=== PATIENT | female | born 1995 | race Caucasian/White ===

== ENCOUNTER 2021-08-24 10:36 | Outpatient (RCR) | payer OTHER, SELFPAY | END 2021-11-18 23:59 | disposition home or self-care (01) | LOC: ANHLAB 10:36 | PROVIDERS: Referring Provider Obstetrics & Gynecology; Visit Provider Advanced Practice Midwife | DX: O20.0 Threatened abortion (principal); Z3A.00 Weeks of gestation of pregnancy not specified | CPT/HCPCS: 36415; 84702; 85461 ==

== ENCOUNTER 2021-09-03 01:46 | Day surgery (SDC) | payer OTHER, SELFPAY ==
--- NOTE | 2021-09-01 07:37 | SUR.PREOP ---
Report to the Outpatient Waiting Room, entrance under the green pavilion located off [facility], at time 1200 on date 09/03/21. OR Time: 1400. - You and your visitor will be asked a series of questions to screen for COVID 19 for your protection. - Only one visitor is allowed at this time. - The patient visitor is requested to leave or wait in car when not with patient. - A mask is required within the hospital. Patients may have clear liquids (water, carbonated beverages, clear teas, apple juice) until 3 hours prior to surgery with a maximum of 20 ounces. - NO CLEAR LIQUIDS AFTER 1100 - No food from midnight until time of surgery - Infants may have breast milk until 4 hours before surgery, infant formula 6 hours prior to surgery. - Children will be allowed to drink immediately following surgery. If applicable, please bring a bottle or sippy cup to assist with drinking. Juice, water, soda, and popsicles are readily available. For infants on formula, please bring formula the day of surgery. Pacifiers are allowed. Please no make-up, nail [place], hairspray, perfume, deodorant, or body powder the day of surgery. No jewelry (including any body piercings) or valuables the day of surgery, leave them at home. Please take a shower or bath the night before, or the morning of, surgery with an antibacterial soap. Wear comfortable, loose fitting clothing. Children are encouraged to wear pajamas. - Jewelry must be removed prior to entering the operating room. Rings and piercings that are not removed may be cut off. - The hospital will not accept responsibility for valuables. - Please leave all valuables, including medications, at home the day of surgery. If you are going home after surgery, a licensed star route mail driver must drive you home. - NO public transportation without another adult. - We recommend that an adult stay with you for 24 hours following discharge. - We also recommend that you do not drive, make important decision, drink alcoholic beverages, or take any drugs that were not prescribed by your health care provider for at least 24 hours after your discharge time. For Pediatric surgeries, we recommend two adults accompany the child home (only one inside the building at this time). Follow any additional instructions given to you from your surgeon. If you or anyone in your household have experienced Covid symptoms in the past week, please notify your surgeon or the nurse liaison at the phone number below for possible testing. Telephone instructions given to CAYDEN GARCIA and asked if any additional questions and then verbalized understanding. Patient advised to call surgeon office or pre surgery nurse liaison [phone] if any additional questions.
[2021-09-01 07:47] VITALS: BMI 30.1
[2021-09-03 12:19] VITALS: BP 105/66; PULSE 69; RESP 20; TEMP 36.1; O2SAT 100
[2021-09-03] MEDS: ACETAMINOPHEN 500 MG TABLET 1000 MG PO (12:24)
--- NOTE | 2021-09-03 13:21 | WPDANESEPPF ---
Anes - Initial Pre Proc Eval Procedure: Operation Date: 09/03/21 14:00 Proposed Procedures p Suction Dilation and Curettage - Meghan Rodriguez MD Date/Time: 09/03/21 13:21 Surgeon: Meghan Rodriguez MD Pre Op Diagnosis: Missed Ab Patient Data Age: 25 Gender: F Height: 1.6 m Weight: 77.2 kg Last Vital Signs Temp 97.0 F L 09/03/21 12:19 Pulse 69 09/03/21 12:19 Resp 20 09/03/21 12:19 BP 105/66 09/03/21 12:19 Pulse Ox 100 09/03/21 12:19 Allergies Allergy/AdvReac Type Severity Reaction Status Date / Time No Known Allergies Allergy Verified 09/03/21 12:20 Home Medications Medication Instructions Recorded Confirmed Type omeprazole 40 mg PO HS 09/01/21 09/03/21 History multivitamin [Daily Multivitamin] 1 tablet PO DAILY 09/03/21 09/03/21 History Patient hx anesthesia problems: none Family hx anesthesia problems: none Results Review: All pre-operative results and documents have been reviewed as part of the pre-operative evaluation. [facility] Social History Social History Smoking status: Never smoker Living arrangements: with family Spiritual care concerns: No Anes - Eval Final PreProcedure Day of Procedure 09/03/21 13:21 Patient weight: obese Heart: regular rate and rhythm Lungs: clear to auscultation Airway: Mallampati scale class II Neurological: alert and oriented Last oral intake: >/= 8 hours ASA classification: II Emergent: no Anesthetic plan: proceed Anesthesia type and monitoring: general GIVS and standard monitoring Results Review: All pre-operative results and documents have been reviewed as part of the pre-operative evaluation. Informed Consent: The patient's anesthetic plan and its attendant risks and benefits were discussed with the patient/family/POA. Questions were solicited and answers provided to the satisfaction of the patient/family/POA.
--- NOTE | 2021-09-03 13:51 | PM.IMHP ---
H&P: HPI History of Present Illness Date/Time: 09/03/21 13:51 Chief Complaint: missed ab Narrative: Kavita is a 25yo G1 at 10w by dates with missed ab. hcgs plateaued and no change in US in over a week. Rh pos. She has had brown bleeding but no red bleeding. Cramping is increasing last few days. Review of Systems Review of Systems: All systems reviewed & are unremarkable except as noted in HPI and below PMFSH Social History Social History Smoking status: Never smoker Living arrangements: with family Spiritual care concerns: No Meds Home Medications and Allergies Home Medications Medication Instructions Recorded Confirmed Type omeprazole 40 mg PO HS 09/01/21 09/03/21 History multivitamin [Daily Multivitamin] 1 tablet PO DAILY 09/03/21 09/03/21 History Allergies Allergy/AdvReac Type Severity Reaction Status Date / Time No Known Allergies Allergy Verified 09/03/21 12:20 Vital Signs Vital Signs - 24 hr 09/03/21 12:19 Temperature 97.0 F L Pulse Rate 69 Respiratory Rate 20 Blood Pressure 105/66 Pulse Oximetry 100 Exam Const: General: no acute distress Resp: Effort & Inspection: normal respiratory effort Auscultation: clear to auscultation bilaterally Cardio: Rate: regular rate Rhythm: regular rhythm GI: GI Palp: Yes Soft to palpation Extrem: General: normal to inspection Assessment and Plan Assessment and plan (1) Missed : Code(s): O02.1 - Missed Status: Acute Additional Plan Rh pos consented for suction D and C for missed ab precautions and post op instructions given. will proceed
--- NOTE | 2021-09-03 14:02 | WPDHPUPDATE1 ---
History and Physical Update Update Date/Time: 09/03/21 14:02 History and Physical has been reviewed, including an updated exam of the patient. There are NO changes in the patient's condition. Risks, benefits, and alternatives have been discussed and questions answered. Patient agrees to proceed with procedure.
[2021-09-03] MEDS: LIDOCAINE HCL 1% LOCAL INJ 20 ML VIAL 10 ML INFILTRATE (14:14)
[2021-09-03] MEDS: KETOROLAC 30 MG/ML VIAL (*BKC) IV PUSH (14:34)
--- NOTE | 2021-09-03 14:35 | W.PM.PROC2 ---
Procedure Note - Detailed Date of Procedure 09/03/21 Pre-op Diagnosis Missed Ab Post-op Diagnosis Same Procedure Performed suction D and C Surgeon Meghan Rodriguez MD Anesthesia MAC Indications missed ab measuring about 6w Description of Procedure The patient was taken to the OR and placed in supine position in dorsal lithotomy. She received MAC anesthesia and doxycycline. She was prepped and draped in normal fashion. A speculum was placed and the cervix was grasped with a single tooth tenaculum. A paracervical block was placed with 10cc 1% lidocaine. The cervix was sequentially dilated to 8 brandt. The suction was tested and then the suction catheter was inserted into the uterine cavity. Several passes were made until no further products of conception were obtained. The tenaculum was removed and hemostasis was obtained with pressure and monsel's solution. The speculum was removed. The patient tolerated the procedure well and was taken to the recovery room in stable condition. Estimated Blood Loss 250 Drains No Packing No Pathology Yes Complications No immediate complications Condition Stable Disposition Same day
[2021-09-03 14:37] VITALS: BP 108/68; PULSE 70; RESP 16; O2SAT 100
[2021-09-03] MEDS: LACTATED RINGERS 1,000 ML 30 ML IV CONT (14:37)
[2021-09-03 15:07] VITALS: BP 102/65; PULSE 66; RESP 16
[2021-09-03 15:30] VITALS: BP 111/72; PULSE 65; RESP 16
== END 2021-09-03 15:40 | disposition home or self-care (01) ==
PROVIDERS: Visit Provider Obstetrics & Gynecology
PROC: (CPT 59820; principal; 2021-09-03 14:00)
DX: O02.1 Missed abortion (principal)
CPT/HCPCS: 59820; 88305; A9270; J1885; J2250; J2704; J3010; J7120

== ENCOUNTER 2021-09-17 01:03 | Day surgery (SDC) | payer OTHER, SELFPAY ==
[2021-09-17 06:33] VITALS: BMI 30.1
[2021-09-17] MEDS: ACETAMINOPHEN 500 MG TABLET 1000 MG PO (06:43)
[2021-09-17] MEDS: DOXYCYCLINE 100 MG/NS 100 ML 100 MG/100 ML BAG IVPB (06:54)
[2021-09-17] MEDS: LACTATED RINGERS 1,000 ML 30 ML IV CONT (06:54)
--- NOTE | 2021-09-17 06:54 | P.PNAN_ITS ---
Anes - Initial Pre Proc Eval Procedure: Operation Date: 09/17/21 07:30 Proposed Procedures p Suction Dilation and Curettage - Meghan Rodriguez MD Date/Time: 09/17/21 06:54 Surgeon: Meghan Rodriguez MD Pre Op Diagnosis: incomplete Patient Data Age: 25 Gender: F Height: 1.6 m Weight: 77.2 kg Allergies Allergy/AdvReac Type Severity Reaction Status Date / Time No Known Allergies Allergy Verified 09/17/21 06:30 Home Medications Medication Instructions Recorded Confirmed Type omeprazole 40 mg capsule,delayed 40 mg PO HS 09/01/21 09/17/21 History release multivitamin 1 tablet PO DAILY 09/03/21 09/17/21 History Patient hx anesthesia problems: none Family hx anesthesia problems: none Results Review: All pre-operative results and documents have been reviewed as part of the pre- operative evaluation. [facility] Past Medical History Medical History (Updated 09/17/21 @ 06:55 by Ayo Goodwin MD) Overweight Surgical History Surgical History (Updated 09/17/21 @ 06:55 by Ayo Goodwin MD) History of D&C Social History Social History Smoking status: Never smoker Spiritual care concerns: No Anes - Eval Final PreProcedure Day of Procedure 09/17/21 06:54 Patient weight: overweight Heart: regular rate and rhythm Lungs: clear to auscultation Neurological: alert and oriented Last oral intake: >/= 8 hours ASA classification: II Emergent: no Anesthetic plan: proceed Anesthesia type and monitoring: general GIVS and standard monitoring Results Review: All pre-operative results and documents have been reviewed as part of the pre- operative evaluation. Informed Consent: The patient's anesthetic plan and its attendant risks and benefits were discussed with the patient/family/POA. Questions were solicited and answers provided to the satisfaction of the patient/family/POA.
[2021-09-17 07:10] VITALS: BP 116/75; PULSE 68; RESP 16; TEMP 36.9; O2SAT 100
--- NOTE | 2021-09-17 07:26 | PM.IMHP ---
H&P: HPI History of Present Illness Date/Time: 09/17/21 07:26 Chief Complaint: retained POC Narrative: Kavita is a 25yo who hadd D and C 09/03 and since has had intermittent episodes of heavy bleeding, along with times of no bleeding. Tender since US yesterday, which showed 3.8x2.8cm heterogeneous products in uterus. no fevers. Review of Systems Review of Systems: All systems reviewed & are unremarkable except as noted in HPI and below PMFSH Past Medical History Medical History (Updated 09/17/21 @ 07:29 by Meghan Rodriguez MD) Overweight Surgical History Surgical History (Updated 09/17/21 @ 06:55 by Ayo Goodwin MD) History of D&C Social History Social History Smoking status: Never smoker Spiritual care concerns: No Meds Home Medications and Allergies Home Medications Medication Instructions Recorded Confirmed Type omeprazole 40 mg capsule,delayed 40 mg PO HS 09/01/21 09/17/21 History release multivitamin 1 tablet PO DAILY 09/03/21 09/17/21 History Allergies Allergy/AdvReac Type Severity Reaction Status Date / Time No Known Allergies Allergy Verified 09/17/21 06:30 Vital Signs Vital Signs - 24 hr 09/17/21 07:10 Temperature 98.5 F Pulse Rate 68 Respiratory Rate 16 Blood Pressure 116/75 Pulse Oximetry 100 Oxygen Delivery Room Air Exam Const: General: no acute distress Resp: Effort & Inspection: normal respiratory effort Auscultation: clear to auscultation bilaterally Cardio: Rate: regular rate Rhythm: regular rhythm GI: GI Palp: Yes Soft to palpation Extrem: General: normal to inspection H&P: Results Labs Labs: B pos Hgb 12 hcg 56 Assessment and Plan Assessment and plan (1) Retained products of conception: Status: Acute Plan suction D and C doxy Additional Plan suction D and C, consented rh pos doxy Hgb stable
--- NOTE | 2021-09-17 07:29 | WPDHPUPDATE1 ---
History and Physical Update Update Date/Time: 09/17/21 07:29 History and Physical has been reviewed, including an updated exam of the patient. There are NO changes in the patient's condition. Risks, benefits, and alternatives have been discussed and questions answered. Patient agrees to proceed with procedure.
[2021-09-17] MEDS: LIDO 1%/EPINEPHRINE/PF 1:200,000 30 ML VIAL 10 ML XX (07:47)
[2021-09-17] MEDS: KETOROLAC 30 MG/ML VIAL (*BKC) IV PUSH (07:50)
--- NOTE | 2021-09-17 07:58 | W.PM.PROC2 ---
Procedure Note - Detailed Date of Procedure 09/17/21 Pre-op Diagnosis incomplete Post-op Diagnosis Same Procedure Performed suction D and C Surgeon Meghan Rodriguez MD Anesthesia MAC Indications persistent heavy bleeding and retained products on US Findings large blot clots and small to moderate amount of white tissue obtained. Description of Procedure The patient was taken to the OR and placed in supine position in dorsal lithotomy. She received MAC anesthesia and doxycycline. She was prepped and draped in normal fashion. A speculum was placed and the cervix was grasped with a single tooth tenaculum. A paracervical block was placed with 10cc 0.25% marcaine with epinephrine. The cervix was sequentially dilated to 10 brandt. The suction was tested and then the suction catheter was inserted into the uterine cavity. Several passes were made until no further products of conception were obtained. The tenaculum was removed and hemostasis was obtained with pressure and monsel's solution. The speculum was removed. The patient tolerated the procedure well and was taken to the recovery room in stable condition. Estimated Blood Loss 50 Drains No Packing No Pathology Yes Complications No immediate complications Condition Stable Disposition Same day
[2021-09-17 07:59] VITALS: BP 120/68; PULSE 94; RESP 16
[2021-09-17 08:25] VITALS: BP 110/68; PULSE 66; RESP 20
[2021-09-17 08:55] VITALS: BP 109/67; PULSE 57; RESP 20
[2021-09-17 09:15] VITALS: BP 121/67; PULSE 62; RESP 20
== END 2021-09-17 09:25 | disposition home or self-care (01) ==
PROVIDERS: Visit Provider Obstetrics & Gynecology
PROC: (CPT 59812; principal; 2021-09-17 07:30)
DX: O03.4 Incomplete spontaneous abortion without complication (principal)
CPT/HCPCS: 59812; 88305; A9270; J1100; J1885; J2250; J2405; J2704; J3010; J7120